=== PATIENT | male | born 1955 | race Caucasian/White ===

== ENCOUNTER 2017-02-02 18:09 | Emergency (ER) | payer MEDICAID | END 2017-02-02 19:32 | disposition left against medical advice (07) | LOC: D.ER 18:09 | DX: I10 Essential (primary) hypertension (principal) ==

== ENCOUNTER 2018-08-25 18:00 | Emergency (ER) | payer MEDICAID ==
[~2018-08-25] VITALS: Ht 185.4 cm; Wt 135.9 kg
[2018-08-25 18:32] VITALS: Ht 185.4 cm; Wt 135.9 kg
[2018-08-25] MEDS ORDERED: ZOCOR20 MG PO (18:34)
[2018-08-25] MEDS ORDERED: GLUCOPHAGE1000 MG PO (18:34)
[2018-08-25] MEDS ORDERED: BAYER CHEWABLE81 MG PO (18:34)
[2018-08-25] MEDS ORDERED: GLIPIZIDE10 MG PO (18:35)
[2018-08-25] MEDS ORDERED: PRINIVIL20 MG PO (18:36)
[2018-08-25] MEDS ORDERED: NORCO 10-325 TA1 TAB PO (18:37)
[2018-08-25] MEDS ORDERED: METOPROLOL TART50 MG PO (18:41)
[2018-08-26 00:57] VITALS: BP 146/79
== END 2018-08-26 00:57 | disposition home or self-care (01) ==
LOC: D.ER 18:00
DX: S89.91XA Unspecified injury of right lower leg, initial encounter (principal); Y93.61 Activity, american tackle football; Y92.019 Unspecified place in single-family (private) house as the place of occurrence of the external cause; S92.401A Displaced unspecified fracture of right great toe, initial encounter for closed fracture; M79.604 Pain in right leg; Z86.73 Personal history of transient ischemic attack (TIA), and cerebral infarction without residual deficits; E11.9 Type 2 diabetes mellitus without complications; I10 Essential (primary) hypertension; J44.9 Chronic obstructive pulmonary disease, unspecified; F17.200 Nicotine dependence, unspecified, uncomplicated

== ENCOUNTER 2019-05-08 14:44 | Emergency (ER) | payer MEDICAID ==
[~2019-05-08] VITALS: Ht 185.4 cm; Wt 126.4 kg
[~2019-05-08 14:44] MED LIST: BAYER CHEWABLE81 MG PO; GLIPIZIDE10 MG PO; GLUCOPHAGE1000 MG PO; METOPROLOL TART50 MG PO; NORCO 10-325 TA1 TAB PO; PRINIVIL20 MG PO; ZOCOR20 MG PO
[2019-05-08 15:10] VITALS: Ht 185.4 cm; Wt 126.4 kg
[2019-05-08] MEDS ORDERED: TORADOL10 MG PO (20:38)
[2019-05-08] MEDS ORDERED: VISTARIL50 MG PO (20:38)
[2019-05-08 21:08] VITALS: BP 144/79
== END 2019-05-08 21:08 | disposition home or self-care (01) ==
LOC: D.ER 14:44
DX: R59.0 Localized enlarged lymph nodes (principal); S00.06XA Insect bite (nonvenomous) of scalp, initial encounter; W57.XXXA Bitten or stung by nonvenomous insect and other nonvenomous arthropods, initial encounter; L72.3 Sebaceous cyst

== ENCOUNTER 2019-05-13 15:06 | Emergency (ER) | payer MEDICAID ==
[~2019-05-13] VITALS: Ht 185.4 cm; Wt 126.4 kg
[~2019-05-13 15:06] MED LIST changes: +TORADOL10 MG PO; +VISTARIL50 MG PO
[2019-05-13 15:24] VITALS: Ht 185.4 cm; Wt 126.4 kg
[2019-05-13] MEDS ORDERED: NEURONTIN 300300 MG PO (17:59)
[2019-05-13 18:49] VITALS: BP 126/74
== END 2019-05-13 18:53 | disposition home or self-care (01) ==
LOC: D.ER 15:06
DX: G58.8 Other specified mononeuropathies (principal); E11.9 Type 2 diabetes mellitus without complications; I10 Essential (primary) hypertension